=== PATIENT | male | born 1950 | race Caucasian/White ===

== ENCOUNTER 2020-05-25 12:57 | Emergency (ER) | payer MEDICARE, OTHER ==
[~2020-05-25] VITALS: Ht 172.7 cm; Wt 81.8 kg
[~2020-05-25 12:57] MED LIST: ADULT LOW DOSE81 MG PO; CALCIUM OYSTER500 MG PO; CENTRUM SILVER1 EAC1 PO; FLOMAX PO; GLUCOSAMINE S1000 M2 PO; LIPITOR20 MG PO; NASACORT AQ NS; PROSCAR 5MG TABL5 M1 PO; QVAR HFA 880 MCG/UN1 INH; TAMBOCOR 100 M100 M1 PO; ZEGERID 40 MG1 EACH PO
[2020-05-25] MEDS ORDERED: FAMOTIDINE 20 M20 MG PO (13:30)
[2020-05-25 13:39] LABS: HEMATOCRIT 42.2 % (42.0-52.0); HEMOGLOBIN 15.2 gm/dL (14.0-18.0); MCH 32.5 pg (26.0-34.0); MCHC 35.9 g/dL (28.0-37.0); MCV 90.6 fL (80.0-100.0); MPV 7.9 fl. (7.2-11.1); NUCLEATED RBCS 0 /100WBC; PLATELET COUNT* 181 thou/uL (150-400); RBC 4.66 mil/uL (4.50-6.00); RDW-CV 12.6 % (10.5-14.5); WBC 5.9 thou/uL (4.0-11.0)
[2020-05-25 13:51] LABS: CALCIUM 8.1 mg/dL (8.5-10.1); CREATININE 1.1 mg/dL (0.6-1.3); POTASSIUM 3.7 mmol/L (3.5-5.1)
[2020-05-25 14:00] LABS: ABSOLUTE LYMPHOCYTES 0.4 thou/uL (0.8-5.3); ABSOLUTE MONOCYTES 0.1 thou/uL (0.0-1.2); ABSOLUTE NEUTROPHILS 5.4 thou/uL (1.6-8.1); PLATELET ESTIMATE ADEQUATE
[2020-05-25 14:02] LABS: ALBUMIN 3.7 g/dL (3.4-5.0); MAGNESIUM 1.8 mg/dL (1.8-2.4); TOTAL BILIRUBIN 0.6 mg/dL (<0.1-1.0); TOTAL PROTEIN 7.1 g/dL (6.4-8.2)
[2020-05-25] MEDS ORDERED: ZOFRAN ODT4 MG DISSOLVE (16:47)
[2020-05-25 17:15] VITALS: BP 142/58
--- NOTE | 2020-05-26 14:01 | EKG ---
[place] [address] ELECTROCARDIOGRAM REPORT Name: PASQUALE NEUMANN Room: [facility]#: [id number] Admission: 05/25/20 Attend Phys: Discharge: 05/25/20 Date of : 46 Date of Service: 05/25/20 1304 Report #: [id number] THIS REPORT FOR: //name// [facility] ED Test Date: 2020-05-25 Test Time: 13:04:40 Pat Name: PASQUALE NEUMANN Department: Room: Gender: Insert Cutter: S : 1950 Requested By: Luis Miguel Vizcaino Order Number: [id number] MD: Adrian Espinoza Measurements Intervals [place] Rate: 81 P: 30 MD: 167 QRS: 35 QRSD: 97 T: 38 QT: 361 QTc: 419 Interpretive Statements Sinus rhythm Baseline wander in lead(s) V1 No previous ECG available for comparison Electronically Signed On 05-26-2020 14:01:07 CDT by Adrian Espinoza [email or web address] <ELECTRONICALLY SIGNED> By: Adrian Espinoza MD, [facility] 05/26/20 1401 1304 1304 Adrian Espinoza MD, [facility] /EPI
== END 2020-05-25 17:15 | disposition home or self-care (01) ==
LOC: M.ERS 12:57
PROVIDERS: Emergency Medicine Emergency Medical Services
DX: U07.1 COVID-19 (principal); E78.00 Pure hypercholesterolemia, unspecified; E78.5 Hyperlipidemia, unspecified; J45.909 Unspecified asthma, uncomplicated; K21.9 Gastro-esophageal reflux disease without esophagitis

== ENCOUNTER 2020-05-29 20:43 | Emergency (ER) | payer MEDICARE, OTHER ==
[~2020-05-29] VITALS: Ht 172.7 cm; Wt 81.7 kg
[~2020-05-29 20:43] MED LIST changes: +FAMOTIDINE 20 M20 MG PO; +ZOFRAN ODT4 MG DISSOLVE
[2020-05-29 21:35] LABS: HEMATOCRIT 40.8 % (42.0-52.0); HEMOGLOBIN 14.6 gm/dL (14.0-18.0); MCH 32.5 pg (26.0-34.0); MCHC 35.9 g/dL (28.0-37.0); MCV 90.6 fL (80.0-100.0); MPV 7.8 fl. (7.2-11.1); NUCLEATED RBCS 0 /100WBC; PLATELET COUNT* 226 thou/uL (150-400); RDW-CV 12.3 % (10.5-14.5)
[2020-05-29] MEDS ORDERED: XANAX 0.5 MG0.5 MG PO (21:35)
[2020-05-29] MEDS ORDERED: PROAIR HFA8.5 GM INH (21:35)
[2020-05-29 21:39] LABS: CALCIUM 8.1 mg/dL (8.5-10.1); CREATININE 1.1 mg/dL (0.6-1.3); POTASSIUM 3.9 mmol/L (3.5-5.1)
[2020-05-29 21:43] LABS: ALBUMIN 3.3 g/dL (3.4-5.0); TOTAL BILIRUBIN 0.4 mg/dL (<0.1-1.0); TOTAL PROTEIN 7.1 g/dL (6.4-8.2)
[2020-05-29 22:06] LABS: ABSOLUTE LYMPHOCYTES 0.2 thou/uL (0.8-5.3); ABSOLUTE MONOCYTES 0.6 thou/uL (0.0-1.2); ABSOLUTE NEUTROPHILS 8.2 thou/uL (1.6-8.1); PLATELET ESTIMATE ADEQUATE
[2020-05-29 22:55] VITALS: BP 128/70
--- NOTE | 2020-05-30 13:48 | EKG ---
[place] [address] ELECTROCARDIOGRAM REPORT Name: PASQUALE NEUMANN Room: [facility]#: [id number] Admission: 05/29/20 Attend Phys: Discharge: 05/29/20 Date of : 46 Date of Service: 05/29/202057 Report #: [id number] THIS REPORT FOR: //name// [facility] ED Test Date: 2020-05-29 Test Time: 20:58:21 Pat Name: PASQUALE NEUMANN Department: Room: Gender: Careers Adviser: [place] : 1950 Requested By: Kaley Benitez Order Number: [id number] MD: Yunior Burgos Measurements Intervals [place] Rate: 78 P: 28 MD: 172 QRS: 19 QRSD: 99 T: 53 QT: 363 QTc: 414 Interpretive Statements Sinus rhythm Baseline wander in lead(s) V1,V2 Compared to ECG 05/25/2020 13:04:40 No significant changes Electronically Signed On 05-30-2020 13:48:12 CDT by Yunior Burgos [email or web address] <ELECTRONICALLY SIGNED> By: Yunior Burgos MD, [facility] 05/30/20 1348 57 57 Yunior Burgos MD, [facility] /EPI
== END 2020-05-29 22:55 | disposition home or self-care (01) ==
LOC: M.ERS 20:43
PROVIDERS: Physician Assistant
DX: U07.1 COVID-19 (principal); F41.9 Anxiety disorder, unspecified; J45.909 Unspecified asthma, uncomplicated; E78.00 Pure hypercholesterolemia, unspecified; K21.9 Gastro-esophageal reflux disease without esophagitis; N40.0 Benign prostatic hyperplasia without lower urinary tract symptoms